=== PATIENT | female | born 1985 | race Caucasian/White ===

== ENCOUNTER 2019-02-28 10:10 | Inpatient (IN) | payer MEDICAID ==
[~2019-02-28] VITALS: Ht 155 cm; Wt 131.8 kg
[2019-02-28] VITALS (19 sets, daily range): BP systolic 93–130; BP diastolic 46–82; PULSE 76–100; TEMP 98.6–99.1
--- NOTE | 2019-02-28 10:20 | NUR ---
G2L1 at 39.2 weeks gestation to room 211 for repeat scheduled . Patient denies vaginal bleeding or leaking of fluid and reports good movement. Patient changed into gown, wedged left. EFMs explained and applied. FHR 130 bpm but difficult to monitor due to maternal habitus, this nurse remains at bedside adjusting EFM. No CTX per toco or patient reports. VSS. Consents signed and assessments completed. 1045 IV started in left hand by SN [place], labs drawn from site. Plan of care reviewed and patient oriented to room and call light.
[2019-02-28 11:35] LABS: BASO % 0.2 % (0.0-2.0); EOS # 0.3 (0.0-0.7); GRAN # 9.6 (1.4-6.5); GRAN % 71.4 % (42.2-75.2); HEMOGLOBIN 10.8 g/dl (12.5-16.0); LYMPH # 2.4 (1.2-3.4); LYMPH % 17.5 % (20.0-51.0); MEAN CELL VOLUME 88 fl (80.0-100.0); MEAN CORPUSCULAR HEMOGLOBIN 27 pg (27.0-31.0); MEAN CORPUSCULAR HGB CONC 31 g/dl (33.0-37.0); MONO # 1.1 (0.1-0.6); MONO % 7.9 % (1.7-9.3); PLATELET COUNT 293 K/mm3 (130-400); RED BLOOD COUNT 3.94 M/mm3 (4.10-5.30); REDCELL DISTRIBUTION WIDTH-CV 14.9 % (11.5-14.5)
[2019-02-28 11:38] LABS: HEMATOCRIT 34.6 % (37.0-47.0)
[2019-03-01 00:30] VITALS: BP 108/63; PULSE 92
[2019-03-01 08:20] VITALS: BP 130/70; PULSE 82; TEMP 98.9
--- NOTE | 2019-03-01 10:29 | NUR ---
Initial visit; Mom thanked Children'S Minister for offering congratulations and God's blessings for the of her son. Children'S Minister thanked mom for choosing [facility].
[2019-03-01 20:20] VITALS: BP 120/55; PULSE 96; TEMP 98.2
[2019-03-02 08:10] VITALS: BP 121/65; PULSE 89; TEMP 97.7
[2019-03-02] MEDS ORDERED: IBU600 MG PO (10:06)
[2019-03-02] MEDS ORDERED: PERCOCET 325 MG1 TA2 PO (10:07)
== END 2019-03-02 12:20 | disposition home or self-care (01) | DRG 788 ==
LOC: OB 10:10 → LDR 11:12 → OB 03-02 12:20
PROVIDERS: ADMIT Obstetrics & Gynecology
PROC: 10D00Z1 Extraction of Products of Conception, Low, Open Approach (ICD-10-PCS; principal; 2019-02-28)
DX: O34.211 Maternal care for low transverse scar from previous cesarean delivery (principal); Z3A.39 39 weeks gestation of pregnancy; Z37.0 Single live birth; O36.63X0 Maternal care for excessive fetal growth, third trimester, not applicable or unspecified; O99.214 Obesity complicating childbirth
CPT/HCPCS: J0690; J1885; J2270; J2405; J2590; J7120

== ENCOUNTER → 2019-03-07 | Outpatient (CLI) | payer MEDICAID ==
[~2019-03-07] MED LIST: IBU600 MG PO; PERCOCET 325 MG1 TA2 PO
--- NOTE | 2019-03-07 15:01 | NUR ---
Pt, Dolly Guillermo, presents for consult after being referred by Dr. Martinez, because her one week old baby, Rashaun Goodman "", has lost 12% of his weight and he needs a repeat bilirubin check. Rashaun Goodman was born by c/section on [birth year] and weighed 8#15oz (4050 gms). His discharge weight was 8#5oz (3770 gms). This LC observed latch while they were post- and Rashaun Goodman was able to latch well at that time. Today Rashaun Goodman weighs 7#13oz (3542 gms), which is apparently less than when he was seen by Dr. Campbell. Pt reports eats every 2-3 hours, had 4-5 yellow green stools, and 6 clear urines in the last 24 hours. She has pumped a few times, when she feels the milk is not completely drained after . She reports collecting 3oz BID with pumping. EBM is refed to him at subsequent feedings. The most recent pumping was at 0940 (2 hours previous to this consult) and she collected 2.5oz. Pt works with baby, latchs well, but does infant does not sustain much effort, sleeping more than nursing while here. After he has a total weight gain of 28gms. Pt offers her EBM but does not drink from the bottle well, spitting the milk out and not latching on the bottle nipple. Pt states he usually drinks from the bottle better than this but not great at the bottle. Staff nurse collects his blood for bilirubin test and sucks well on this LC's gloved finger during the blood draw. Pt pumps after and collect 15ml. POC: 3-step feeding plan: offer breast each feeding, offer 2-3oz EBM or formula after each feeding, pump after each and save milk for supplement. F/U: Pt to phone LC on MondayMarch 12 to review progress and schedule follow up consult. Pt verbalizes understanding of instructions. [facility] area for bilirubin results.
== END ==
LOC: OLC 11:26
DX: Z39.1 Encounter for care and examination of lactating mother (principal); Z71.89 Other specified counseling

== ENCOUNTER 2021-04-14 17:13 | Observation (INO) | payer MEDICAID ==
[~2021-04-14] VITALS: Ht 154.9 cm; Wt 135.9 kg
--- NOTE | 2021-04-14 18:21 | NUR ---
1736 TO 1820- PATIENT ON EFM. UNABLE TO TRACE HEART TONES WELL. DR PALENCIA AT BEDSIDE. DOPPLER USED BY TREVOR BURROWS. PATIENT ON EFM, ASSESMENT COMPLETE, PATIENT STATES SHE SMOKES 1/2 PACK DAILY. PATIENT STATES SHE HAS HAD LEFT LOWER QUADRANT AND BACK PAIN SINCE 1400 WITH NAUSEA. PATIENTS SVE CLOSED, POSTERIOR. PATIENT DENIES CONTRACTIONS, LEAKING OF FLUID, OR BLEEDING
[2021-04-14 18:23] LABS: COLLECTION METHOD CLEAN CATCH
[2021-04-14 18:31] LABS: MUCOUS Present /lpf; PH 6 (5-8); URINE APPEARANCE Cloudy; URINE BACTERIA Rare /hpf; URINE BILIRUBIN Negative (NEGATIVE); URINE BLOOD 2+ (NEGATIVE); URINE COLOR Yellow; URINE GLUCOSE Negative (NEGATIVE); URINE KETONE Negative (NEGATIVE); URINE LEUKOCYTE ESTERASE Negative (NEGATIVE); URINE NITRATE Negative (NEGATIVE); URINE PROTEIN(semi-quant) Negative (NEGATIVE); URINE RBC >50 /hpf
[2021-04-14 19:00] VITALS: BP 144/63; PULSE 80
[2021-04-14 20:15] VITALS: BP 142/62; PULSE 74; TEMP 98.2
[2021-04-14 20:19] LABS: BASO % 0.2 % (0.0-2.0); EOS # 0.1 (0.0-0.7); EOS % 0.7 % (0-4.0); GRAN # 12.6 (1.4-6.5); HEMOGLOBIN 11.1 g/dl (12.5-16.0); LYMPH # 1.3 (1.2-3.4); LYMPH % 8.5 % (20.0-51.0); MEAN CELL VOLUME 89 fl (80.0-100.0); MEAN CORPUSCULAR HEMOGLOBIN 28 pg (27.0-31.0); MEAN CORPUSCULAR HGB CONC 31 g/dl (33.0-37.0); MEAN PLATELET VOLUME 10.5 fl (7.4-10.4); MONO # 0.7 (0.1-0.6); MONO % 4.9 % (1.7-9.3); PLATELET COUNT 239 K/mm3 (130-400); REDCELL DISTRIBUTION WIDTH-CV 14.8 % (11.5-14.5)
[2021-04-14 20:23] LABS: HEMATOCRIT 35.5 % (37.0-47.0)
[2021-04-14 20:30] LABS: ALBUMIN 3.4 gm/dL (3.5-5.0); BILIRUBIN,TOTAL 0.7 mg/dL (0.0-1.0); CREATININE, serum 0.48 (0.52-1.25); POTASSIUM 3.9 mmol/L (3.4-5.0); TOTAL PROTEIN 6.7 gm/dL (6.4-8.2)
[2021-04-15 00:55] VITALS: BP 122/53; PULSE 91; TEMP 98.5
[2021-04-15 09:00] VITALS: BP 119/61; PULSE 90; TEMP 98.2
--- NOTE | 2021-04-15 12:23 | NUR ---
THIS RN TAKES OVER CARE OF PT. REPORT WAS GIVEN BY RONDA Castillo RN. PT. IN STABLE CONDITION.
[2021-04-15 13:15] VITALS: BP 106/60; PULSE 85; TEMP 98.1
[2021-04-15 17:15] VITALS: BP 113/70; PULSE 87; TEMP 98.5
[2021-04-15 20:00] VITALS: BP 127/60; PULSE 91; TEMP 98.1
[2021-04-16 01:04] VITALS: BP 104/41; PULSE 81; TEMP 98
[2021-04-16 08:00] VITALS: BP 105/51; PULSE 81; TEMP 98.2
--- NOTE | 2021-04-16 10:05 | NUR ---
Patient given discharge instructions. Reviewed labor precautions and kick counts. Denies questions. Escorted off unit by RN.
== END 2021-04-16 10:05 | disposition home or self-care (01) ==
LOC: LDRO 17:13 → LDR 17:58 → LDRO 18:59 → OB 19:00
PROVIDERS: ADMIT Obstetrics & Gynecology
DX: O26.833 Pregnancy related renal disease, third trimester (principal); N20.0 Calculus of kidney; O99.333 Smoking (tobacco) complicating pregnancy, third trimester; F17.210 Nicotine dependence, cigarettes, uncomplicated; O99.213 Obesity complicating pregnancy, third trimester; O09.523 Supervision of elderly multigravida, third trimester; Z3A.35 35 weeks gestation of pregnancy
CPT/HCPCS: G0378; J2270; J7120

== ENCOUNTER 2021-05-17 09:25 | Inpatient (IN) | payer MEDICAID ==
[2021-05-17] VITALS (14 sets, daily range): BP systolic 118–151; BP diastolic 57–88; PULSE 64–96; TEMP 98–98.6
[~2021-05-17] VITALS: Ht 157.5 cm; Wt 143.2 kg
[2021-05-17 10:43] LABS: BASO % 0.3 % (0.0-2.0); EOS # 0.2 (0.0-0.7); EOS % 1.6 % (0-4.0); GRAN # 8.4 (1.4-6.5); GRAN % 75.2 % (42.2-75.2); HEMATOCRIT 35.5 % (37.0-47.0); HEMOGLOBIN 10.7 g/dl (12.5-16.0); LYMPH # 1.7 (1.2-3.4); LYMPH % 15.4 % (20.0-51.0); MEAN CELL VOLUME 87 fl (80.0-100.0); MEAN CORPUSCULAR HEMOGLOBIN 26 pg (27.0-31.0); MEAN CORPUSCULAR HGB CONC 30 g/dl (33.0-37.0); MEAN PLATELET VOLUME 11.2 fl (7.4-10.4); MONO # 0.7 (0.1-0.6); MONO % 6.6 % (1.7-9.3); PLATELET COUNT 261 K/mm3 (130-400); RED BLOOD COUNT 4.06 M/mm3 (4.10-5.30); REDCELL DISTRIBUTION WIDTH-CV 15.7 % (11.5-14.5)
--- NOTE | 2021-05-17 10:47 | NUR ---
1010 PATIENT HERE FOR REPEAT C SECTION. ASSESSMENT COMPLETED. IV STARTED IN RIGHT WRIST AND LR STARTED. CONSENTS SIGNED. EFM ON FHT 125 BABY VERY ACTIVE. PUBIS CLIPPED AND PANIS PREPPED. TOLERATES WELL
--- NOTE | 2021-05-17 11:18 | NUR ---
1110 COVIS SWAB DONE AT THIS TIME
--- NOTE | 2021-05-17 16:51 | NUR ---
1600 PERICARE DONE AT THIS TIME
--- NOTE | 2021-05-17 16:51 | NUR ---
0979 BABY OUT TO MOMS ROOM TO CUDDLE FOR A BIT
[2021-05-18 01:15] VITALS: BP 122/70; PULSE 79; TEMP 97.9
[2021-05-18 07:30] VITALS: BP 113/57; PULSE 86; TEMP 98.6
--- NOTE | 2021-05-18 10:35 | NUR ---
Initial visit attempt; Patient out of room, Chaplian left card of congratulations and God's blessings for the of her son and let patient know of the availability of [facility] at [facility].
[2021-05-18 16:15] VITALS: BP 121/64; PULSE 83; TEMP 97.8
[2021-05-18 19:00] VITALS: BP 125/59; PULSE 84; TEMP 98.7
[2021-05-19] MEDS ORDERED: ROXICODONE 55 MG/TAB PO (08:25)
[2021-05-19] MEDS ORDERED: IBU600 MG PO (08:25)
[2021-05-19 09:15] VITALS: BP 147/73; PULSE 88; TEMP 97.6
--- NOTE | 2021-05-19 12:50 | NUR ---
DISCHARGE INSTRUCTIONS REVIEWED. PT VERBALIZED UNDERSTANDING AND AGREED WITH PLAN. STATES THEY HAVE NO QUESTIONS OR CONCERNS AT THIS TIME
== END 2021-05-19 14:50 | disposition home or self-care (01) | DRG 788 ==
LOC: OB 09:57
PROVIDERS: ADMIT Obstetrics & Gynecology
PROC: 10D00Z1 Extraction of Products of Conception, Low, Open Approach (ICD-10-PCS; principal; 2021-05-17)
DX: O34.211 Maternal care for low transverse scar from previous cesarean delivery (principal); O99.52 Diseases of the respiratory system complicating childbirth; J45.909 Unspecified asthma, uncomplicated; O99.214 Obesity complicating childbirth; E66.01 Morbid (severe) obesity due to excess calories; O48.0 Post-term pregnancy; Z20.822 Contact with and (suspected) exposure to COVID-19; Z3A.40 40 weeks gestation of pregnancy; Z37.0 Single live birth
CPT/HCPCS: J2270; J7120

== ENCOUNTER 2022-04-13 05:03 | Emergency (ER) | payer MEDICAID ==
[~2022-04-13] VITALS: Ht 157.5 cm; Wt 90.9 kg
[~2022-04-13 05:03] MED LIST changes: +ROXICODONE 55 MG/TAB PO
[2022-04-13 05:10] VITALS: BP 135/95; PULSE 87; TEMP 97.5
== END 2022-04-13 05:45 | disposition home or self-care (01) ==
LOC: COL.ER 05:03
DX: S63.681A Other sprain of right thumb, initial encounter (principal); F17.210 Nicotine dependence, cigarettes, uncomplicated; Z28.310 Unvaccinated for COVID-19; W01.0XXA Fall on same level from slipping, tripping and stumbling without subsequent striking against object, initial encounter